=== PATIENT | female | born 1990 | race American Indian/Alaskan Native ===

== ENCOUNTER 2018-09-06 12:42 | Inpatient (IN) | payer MEDICAID ==
[2018-09-06 12:49] VITALS: BMI 40.6
[2018-09-06] MEDS ORDERED: Lactated Ringer's 1,000 ML IV ONE (12:58)
[2018-09-06] MEDS ORDERED: ceFAZolin IV 2 gm in Dextrose 2 GM/50 ML BAG IVPB SCH (13:15)
[2018-09-06] MEDS ORDERED: Oxytocin 30 UNIT 30 UNITS/500 ML BAG IV ONE (13:30)
[2018-09-06] MEDS ORDERED: OXYTOCIN/0.9 % NS 20 UNIT/1,000 ML BAG IV SCH (13:30)
[2018-09-06 13:53] LABS: BASO % 0.6 % (0.0-2.0); EOS % 0.5 % (0.0-4.0); LYMPH # 2.4 K/uL (1.0-4.3); MEAN CELL VOLUME 75.9 fl (81.0-99.0); MEAN CORPUSCULAR HEMOGLOBIN 24.3 pg (27.0-31.0); MEAN PLATELET VOLUME 8.8 fl (7.2-11.7); MONO # 0.7 K/uL (0.0-0.8); MONO % 10.1 % (0.0-10.0); NEUT # 3.9 K/uL (1.8-7.0); NEUT % 54.8 % (50.0-75.0); NRBC % 0.1 % (0.0-0.0); RBC 4.12 Mil/uL (3.80-5.20); RED CELL DISTRIBUTION WIDTH 17.2 % (11.5-14.5); WHITE BLOOD COUNT 7.1 K/uL (4.8-10.8)
[2018-09-06] MEDS ORDERED: ePHEDrine 50 mg/ml Inj ONE (14:07)
[2018-09-06] MEDS ORDERED: Morphine 1 mg/ml preservative-free Inj(Duramorph) ONE (14:07)
[2018-09-06] MEDS ORDERED: Phenylephrine 10 mg/ml Inj ONE (14:07)
[2018-09-06] MEDS ORDERED: Lactated Ringer's 1,000 ML IV SCH ×2 (14:45→21:15)
--- NOTE | 2018-09-06 14:54 | OBHP ---
Datetime: 09/06/2018 14:49 IP Adm Impression: , intrauterine IP Admit Plan: Initiate Section protocol Admit Comment, IP Provider: HPI: Karina is a 28 year old at 36.6 who presents with complaints o f low back pain and lower abdominal pain x1 day. She was at her [facility] ultrasound today and was advised by the validation technician to come to [facility] for evaluation. Shortly after triage when she went to get in bed verónica issa had a large gush of fluid down her legs and onto the floor. Since that time her pain has gotten muc h worse and she's reporting contractions every few minutes. Denies any complications with this . She does have a history of labor with her 3 previous pregnancies. History G1: 2009 at 36 weeks, emergency after labor due to compromise G2: 2014, repeat at 35 weeks d/t labor G3: 2016, repeat at 34 weeks due to labor and placenta previa G4: current PMH Denies PSH x3 Medications PNV Allergies NKDA Social Denies any alcohol, tobacco or drug use during Family History Not significant OBJECTIVE Vitals reviewed Ultrasounds - no placenta previa or accreta reported during the ASSESSMENT/PLAN: 28 year old at 36.6 presents with PROM. Gross rupture on exam. Her cervix is not dilated however she is in a lot of pain and reporting contractions every few minutes, also repor ting incisional pain. Plan is to proceed to as soon as possible given her history of 3 prev ious sections and the risk for scar dehiscence/rupture. Patient has been consented. - Also plan to type and cross given her history of a previa with her last - BTL consent obtained and signed as well OB Hospitalist Addendum: Pt seen and examined by me. Agree w/ above. 28 yo at 36+6 wks w / PPROM, grossly ruptured on exam and c/o back pain. Pt admitted to L_D for repeat cesrean section a nd bilateral tubal ligation. Consents obtained for procedure and possible transfusion. (ES) Extremities - PN: Normal Abdomen - PN: Normal Back - PN: Normal Lungs - PN: Normal Heart - PN: Normal Thyroid - PN: Not Done General - PN: Normal FHR - Baseline A Provider: 130's Amniotic Fluid Color, Provider: Clear Membranes, Provider: Ruptured Contraction Comments Provider: irreg Pool Provider: Positive EGA AdmitDate IP: 36.6 Vital Signs Provider: Reviewed IP Indication for Induction: Not Applicable IP Chief Complaint: Uterine contractions; Suspected ruptured membranes NICHD Variability Prov Fetus A: Moderate 6-25bpm NICHD Accel Fetus A IP Provider: [id number] FHR Category Provider Fetus A: Category I NICHD Decel Fetus A IP Provider: None Dilatation, Provider: 1 Effacement, Provider: 30 Station, Provider: -3 Genitourinary Exam: Normal Datetime: 09/06/2018 13:10 HEENT - PN: Normal Comments, ACOG Physical Exam: SSE: gross pooling of fluid on exam Gestation - Est Wks by US: 36.6
[2018-09-06] MEDS ORDERED: Dexamethasone 4 mg/1 ml ONE (16:39)
[2018-09-06] MEDS ORDERED: Midazolam 2 MG/2 ML VIAL ONE (16:41)
--- NOTE | 2018-09-06 17:18 | OBDS ---
DELIVERY PERSONNEL Delivery Doctor: Guanakito Fox MD Vice Chancellor: Lexi Tran RN Anesthesiologist: Hamilton Lopez MD Resident: Dr Mann(OB Fellow) MATERNAL INFORMATION Maternal Complications: None Provider Comments: Pre-op dx: 28 yo at 36+6 wks w/ PPROM and back pain, and incisional pain, multiparity, desires permanent sterilization Post-op dx: Same Procedure: Repeat low transverse section and scar excision Surgeon: Dominique Flow Worker: Dr. Yvrose Duncan, OB fellow Anesthesia: Spinal Anesthiologist: Dr. Lee Lopez Findings: Viable female infant delivered through clear fluid w/ nuchal cord x1, Apgars 9 and 9. Wt 2500 gms, 5#8. Anterior abdominal wall densely scarred. Nl appearing uterus and ovaries. Tubal li gation not done d/t b/l adnexal scarring. EBL: 800mL Complications: None LABOR SUMMARY EDC: 09/28/2018 00:00 No. Babies in Womb: 1 Attempted: No Labor Anesthesia: None LABOR INFORMATION Reason for Induction: Not Applicable Oxytocin: N/A Group B Beta Strep: unknown Antibiotics # of Doses: Ancef 2 grams IVPB Antibiotics Time of Last Dose: 3 Steroids Given: None Reason Steroids Not Administered: Not Applicable MEMBRANES Membranes Rupture Method: Spontaneous Rupture of Membranes: 09/06/2018 12:40 Length of Rupture (hrs): 3.60 Amniotic Fluid Color: Clear Amniotic Fluid Amount: Small Amniotic Fluid Odor: Normal STAGES OF LABOR Stage 3 hrs: 0 Stage 3 min: 1 CSECTION DELIVERY Primary Indication: Repeat C-S with BTL CSection Urgency: Elective CSection Incidence: Repeat Labor: Labor CSection Incision: Lower Uterine Transverse BABY A INFORMATION Infant Delivery Date/Time: 09/06/2018 16:16 Method of Delivery: Born in Route : No : N/A Forceps: N/A Vacuum Extraction: N/A Shoulder Dystocia : No SHOULDER DYSTOCIA BABY A Delivery Date/Time: 09/06/2018 16:16 PRESENTATION/POSITION BABY A Presentation: Cephalic Cephalic Presentation: Vertex Breech Presentation: N/A PLACENTA INFORMATION BABY A Placenta Delivery Time : 09/06/2018 16:17 Placenta Method of Delivery: Expressed Placenta Status: Delivered SCORES BABY A Heart Rate 1 min: >100 bpm Resp Effort 1 min: Good Cry Reflex Irritability 1 min: Cough or Sneeze or Pulls Away Muscle Tone 1 min: Active Motion Color 1 min: Body [place], Extremities Blue Resuscitation Effort 1 min: Tactile Stimulation SCORE 1 MIN: 9 Heart Rate 5 min: >100 bpm Resp Effort 5 min: Good Cry Reflex Irritability 5 min: Cough or Sneeze or Pulls Away Muscle Tone 5 min: Active Motion Color 5 min: Body [place], Extremities Blue Resuscitation Effort 5 min: N/A SCORE 5 MIN: 9 INFANT INFORMATION BABY A Gestational Age at Delivery: 36.6 Gestational Status: Term Infant Outcome : Liveborn Condition : Stable Infant Sex: Female IDENTIFICATION/MEDS BABY A ID Band Number: [id number] ID Band Location: Left Leg; Left Arm Vitamin K Given : Not Given Erythromycin Given: Not Given WEIGHT/LENGTH BABY A Infant Birthweight (gms): 2500 Infant Weight (lb): 5 Infant Weight (oz): 8 Length Inches: 20.00 Infant Length cms: 50.8 CORD INFORMATION BABY A No. Cord Vessels: 3 Nuchal Cord : Around Neck x1, Loose Nuchal Cord Other: n/a True Knot: n/a Infant Cord pH Baby Arterial: n/a Infant Cord pH Baby Venous: n/a Cord Blood Taken: Yes Banking/Donate Info: n/a Suction: Mouth
[2018-09-06] MEDS ORDERED: DiphenhydrAMINE 50 mg/ml Inj IVP PRN ×2 (17:20→21:08)
[2018-09-06 17:58] VITALS: RESP 20
[2018-09-06] MEDS ORDERED: Oxycodone/Acetaminophen 5/325 mg Tab PO PRN ×2 (19:51)
[2018-09-06] MEDS ORDERED: DiphenhydrAMINE 50 mg/ml Inj IVP STA (20:54)
--- NOTE | 2018-09-07 03:58 | OP ---
PROCEDURE DATE: 09/06/2018 PREOPERATIVE DIAGNOSIS: This is a 28-year-old G4, P 0-3-0-3 at 37 weeks and 6 days with premature rupture of the membranes and back pain as well as incisional pain, multiparity who desires permanent sterilization. POSTOPERATIVE DIAGNOSIS: This is a 28-year-old G4, P 0-3-0-3 at 37 weeks and 6 days with premature rupture of the membranes and back pain as well as incisional pain, multiparity who desires permanent sterilization. PROCEDURE: Repeat low transverse section and scar excision. SURGEON: Mario Fox MD ECOSYSTEM ECOLOGY PROFESSOR: Dr. Yvrose Duncan, OB fellow. TYPE OF ANESTHESIA: Spinal ANESTHESIOLOGIST: Dr. Lee Lopez. FINDINGS: Viable female infant, delivered through clear fluid with nuchal cord x1. Apgars were 9 and 9 at one and five minutes respectively. The weight was 2500 g or 5 pounds 8 ounces. Anterior abdominal wall was densely scarred. Normal appearing uterus. Tubal ligation was not done due to bilateral adnexal scarring. ESTIMATED BLOOD LOSS: 800 mL. COMPLICATIONS: None. DESCRIPTION OF PROCEDURE: The patient was taken to the operating room with IV running. She was placed under spinal anesthesia. She was then prepped and draped in a normal sterile fashion in the dorsal supine position with a leftward tilt. A Spencer had been placed in the bladder. A time-out was done. Initially, the prior scar was cut out with a knife. It was then held up with the Allis clamp as Cash scissors were used to free it from the subcutaneous tissue. The incision was then carried down to the underlying layer of fascia with the Bovie. The fascia was incised in the midline and the incision was extended laterally with the Bovie over Amaris. The inferior aspect of the fascial incision was then grasped with Krystal clamps, elevated, and the underlying rectus muscles were dissected off bluntly, and with the Bovie. Attention was then turned to the superior aspect of this incision, which in a similar fashion was grasped, tented up with the Krystal clamps, and the rectus muscles dissected off bluntly, and with the Bovie. There was noted to be dense scarring of the anterior abdominal wall. Two Allis clamps were placed at the center toward the superior aspect of the rectus muscles and this was lifted up and a scalpel was used to carefully enter the peritoneum. The peritoneal incision was then extended superiorly and inferiorly with good visualization of the bladder. The bladder blade was then inserted and vesicouterine peritoneum was identified, grasped with the pickups, and entered sharply with the Metzenbaum scissors. This incision was then extended laterally and the bladder flap was created digitally. The bladder blade was then reinserted and the lower uterine segment was incised in a transverse fashion with the scalpel. The uterine incision was then extended laterally with bandage scissors. The bladder blade was removed and the 's head delivered atraumatically. The cord was clamped and cut, and the was handed off to the awaiting director of annual giving. Cord blood was collected. The placenta was then delivered as the uterus was massaged. The uterus was then exteriorized and cleared of all clots and debris with the dry sponge curettage. The uterine incision was repaired with 0 Vicryl in a running locked fashion. The incision was noted to be off center, to the right side of the uterus, and so the incision was very near the right uterine artery which was carefully avoided during the repair. There was a second layer of 0 Vicryl placed in an imbricating fashion on the right half of the incision to reinforce the incision and for hemostasis. The tubes were then examined and it was decided to not do the tubal due to adnexal scarring bilaterally. The abdomen was then irrigated and the uterus was returned to the abdomen. The gutters were cleared of all clots. 0 chromic was then used in a running stitch to reapproximate the rectus muscle. The fascia was then reapproximated with 0 Vicryl in a running fashion. The subcutaneous fat was well irrigated. The Bovie was applied to bleeders. Interrupted stitches of 2-0 plain gut were placed to close the space of the subcutaneous fat. The skin was then closed with mac. The patient tolerated the procedure well. Sponge, lap, and needle counts were correct. Ancef 2 g had been given prior to the procedure. The patient was taken to the recovery room in stable condition. Mario Fox MD MTDD
[2018-09-07 06:43] LABS: HEMOGLOBIN 7.5 g/dL (12.0-16.0); MEAN CORPUSCULAR HEMOGLOBIN 24.2 pg (27.0-31.0); RBC 3.09 Mil/uL (3.80-5.20); RED CELL DISTRIBUTION WIDTH 16.9 % (11.5-14.5); WHITE BLOOD COUNT 9.6 K/uL (4.8-10.8)
[2018-09-07] MEDS: Multivitamin With Minerals Tab PO SCH (08:53)
[2018-09-07] MEDS ORDERED: Multivitamin With Minerals Tab PO SCH (09:00)
[2018-09-07] MEDS: Oxycodone/Acetaminophen 5/325 mg Tab PO PRN ×2 (10:57→21:49)
--- NOTE | 2018-09-07 11:49 | OBPPN ---
Datetime: 09/07/2018 11:44 PP Pain Prov: Within normal limits PP Nausea Prov: Denies PP Flatus Prov: No PP BM Prov: No PP Breasts Prov: Normal PP Heart Prov: Normal PP Lungs Prov: Normal PP Abdomen/Uterus Prov: Normal PP Lochia Prov: Normal PP Vulva/Perineum Prov: Normal PP CVA Tenderness Prov: Normal PP Extremities Prov: Normal PP C/S Incision Prov: Normal PP Impression Prov: Normal progression PP Plan Prov: Continue present management PP Progress Note Prov: She was able to sit up in chair and eat bfast. No issues. She feels some in cision pain. A: S/P C/S day 1 Anemia - asymptomatic PLAN: cont post op care Vital Signs Provider PP: Reviewed; Within Normal Limits
[2018-09-08] MEDS: Oxycodone/Acetaminophen 5/325 mg Tab PO PRN ×3 (02:42→21:26)
[2018-09-08 07:02] LABS: HEMOGLOBIN 7.8 g/dL (12.0-16.0); MEAN CELL VOLUME 75.8 fl (81.0-99.0); MEAN CORPUSCULAR HEMOGLOBIN 24.1 pg (27.0-31.0); MEAN CORPUSCULAR HGB CONC 31.8 g/dL (33.0-37.0); RBC 3.25 Mil/uL (3.80-5.20); WHITE BLOOD COUNT 8.1 K/uL (4.8-10.8)
--- NOTE | 2018-09-08 07:04 | OBPPN ---
Datetime: 09/08/2018 06:59 PP Pain Prov: Within normal limits PP Nausea Prov: Denies PP Flatus Prov: Yes PP BM Prov: Yes PP Abdomen/Uterus Prov: Normal PP Lochia Prov: Normal PP Extremities Prov: Normal PP C/S Incision Prov: Normal PP Progress Prov: Normal PP Comments Phys Exam Prov: Incison: intact w/ mac PP Impression Prov: Normal progression PP Plan Prov: Continue present management PP Progress Note Prov: POD 2 s/p Repeat c/s at 36+6 wks for PPROM, c/o feeling sore, requesting pain med, breast and bottle feeding Continue current management Vital Signs Provider PP: Reviewed
--- NOTE | 2018-09-08 07:34 | OBPPN ---
Datetime: 09/08/2018 07:16 PP Pain Prov: Within normal limits PP Nausea Prov: Denies PP Flatus Prov: Yes PP BM Prov: Yes PP Breasts Prov: Not Done PP Heart Prov: Normal PP Lungs Prov: Normal PP Abdomen/Uterus Prov: Normal PP Lochia Prov: Normal PP Vulva/Perineum Prov: Not Done PP CVA Tenderness Prov: Not Done PP Extremities Prov: Normal PP C/S Incision Prov: Normal PP Progress Prov: Normal PP Impression Prov: Normal progression PP Plan Prov: Continue present management PP Progress Note Prov: POD 2 S: 28 yo s/p on 09/06/2018. Pt. is seen and examined at bedside this AM. No overnight events. Pt reports mild abdominal pain, but well controlled with pain meds. D/c valencia, dressing dot jean, incision site healing well, no exudate seen, dry and intact. No nausea, advised to advance diet as tolerated. Breast feeding without difficulty and supplementing with formula. Lochia is similar to menses volume. Bowel movement reported overnight- soft and formed. Denies fever/chills, diarrhea, [place]/vomiting, chest pain, dyspnea, and dizziness. O: Vitally stable GEN: Patient is comfortable. In no acute distress. Cardio: S1S2, no murmurs, gallops or rubs. Lungs: clear air entry sounds b/l, no wheezing Abdomen: BS+, tenderness to palpation. Incision scar noted, well healing with no exudate seen, dry and intact. Uterus is firm and at the level of the umbilicus. EXT: No edema, calves non-tender to palpation Assessment/Plan: 28 yo s/p on 09/06/2018. Pt remains afebrile, tolerating pain with m edication, doing well on POD#1. OOB with caution 1. SCDs for DVT prophylaxis, encouraged ambulating 2. Percocet 5/325mg, and Motrin 600mg prn for pain. 3. Senokot for constipation 4. Continue to encourage and ambulating 5. f/u CBC post op: 7.5/24.1 6. Patient reports she is going to have IUD placement by provider. 7. Anticipated d/c to home, 09/09/2017. --- Rosemary Wu MD PGY-1 Pt seen and examined by me. Agree w/ above. POD 2 s/p Repeat c/s for PPROM at 36+ 6 wks, doing w ell, breast and bottle feeding. Continue current managment. (ES) IP PP Procedures: None Vital Signs Provider PP: Reviewed; Within Normal Limits
[2018-09-08] MEDS: Multivitamin With Minerals Tab PO SCH (09:19)
[2018-09-09] MEDS: Oxycodone/Acetaminophen 5/325 mg Tab PO PRN ×2 (04:00→08:27)
[2018-09-09] MEDS: Multivitamin With Minerals Tab PO SCH (08:27)
[2018-09-09] MEDS ORDERED: Measles, Mumps, and Rubella 0.5 ML VIAL SC ONE (09:00)
[2018-09-09] MEDS ORDERED: Tdap Vaccine 0.5 ml Vial (10-64 yrs) IM ONE (09:00)
--- NOTE | 2018-09-09 11:54 | OBPPN ---
Datetime: 09/09/2018 08:01 PP Pain Prov: Within normal limits PP Nausea Prov: Denies PP Flatus Prov: Yes PP BM Prov: Yes PP Breasts Prov: Not Done PP Heart Prov: Normal PP Lungs Prov: Normal PP Abdomen/Uterus Prov: Normal PP Lochia Prov: Normal PP Vulva/Perineum Prov: Normal PP CVA Tenderness Prov: Normal PP Extremities Prov: Normal PP C/S Incision Prov: Normal PP Progress Prov: Normal PP Impression Prov: Normal progression PP Plan Prov: Continue present management PP Progress Note Prov: POD 3 S: 28 yo s/p on 09/06/2018. Pt. is seen and examined at bedside this AM. No overnight events. Pt reports mild abdominal pain, well controlled with pain meds. D/c valencia, dressing removed, incision site healing well, no exudate seen, dry and intact. No nausea, advised to advance diet as t olerated. Breast feeding without difficulty and supplementing with formula. Lochia is similar to mens es volume. Bowel movement reported overnight- soft and formed. Denies fever/chills, diarrhea, nausea/ vomiting, chest pain, dyspnea, and dizziness. O: Vitally stable GEN: Patient is comfortable. In no acute distress. Cardio: S1S2, no murmurs, gallops or rubs. Lungs: clear air entry sounds b/l, no wheezing Abdomen: BS+, tenderness to palpation. Incision scar noted, well healing with no exudate seen, dry and intact. Uterus is firm and at the level of the umbilicus. EXT: No edema, calves non-tender to palpation Assessment/Plan: 28 yo s/p Repeat for PROM at 36+6 weeks on 09/06/2018. Pt remains af ebrile, tolerating pain with medication, doing well on POD#3. OOB with caution 1. SCDs for DVT prophylaxis, encouraged ambulating 2. Percocet 5/325mg, and Motrin 600mg prn for pain. 3. Senokot for constipation 4. Continue to encourage and ambulating 5. f/u CBC post op: 7.5/24.1, Repeat 7.8 6. Patient reports she is going to have IUD placement by provider. 7. Anticipated d/c to home today, 09/09/2017. Appt at [facility] on 09/13/18 --- Cesario Javed MD PGY-[address] Alcala: I have evaluated the patient independently and I agree with the above Vital Signs Provider PP: Reviewed; Within Normal Limits
--- NOTE | 2018-09-09 11:54 | OBDCSUM ---
Datetime: 09/09/2018 08:03 Discharged to, Provider: Home Follow up at, Provider: [facility] clinic Disch Instr Activity: Normal activity; May Shower Disch Instr Diet: Regular Discharge Instructions, Provider: Routine instructions given Discharge Diagnosis, Provider: Term Delivered Discharge Time: 09/09/2018 13:00 Follow up in weeks, Provider: 09/13/18 and 4-6 weeks Disch Referrals: None Contraception discussed, Prov: Yes Disch Activity Restrictions: No exercising; No lifting; No sexual activity; Nothing in vagina - Inte rcourse, tampons, douche Discharge Comment, Provider: Karina Velazquez Dicharge Summary DOA: 09/06/2018 EGA: 35.5 Diagnosis: Repeat due to PROM delivery secondary to PROM Summary of : 28 yo s/p Repeat for PROM at 36+6 weekson 09/06/2018. L_D summary: Patient tolerated surgery well. Pain was well controlled with pain meds. D/c valencia, d ressing removed, incision site healing well, no exudate seen, dry and intact. No nausea, advised to a dvance diet as tolerated. Breast feeding without difficulty and supplementing with formula. Lochia is similar to menses volume. Reports she has been having regular bowel movements. DOL: 09/06/2018 at 16:16 repeat . NB: Female : 9/9 Weight: 2500 g No serious complications during PP/Post-Op. Lochia= menses, mild pain, controlled with medications Rubella Equivocal, MMR and Tdap vaccine given. Blood type: O+ CBC pp: 7.5/24.1 Discharge Date: 09/09/2017 Time 10:00 AM Discharge Instructions: -encourage -percocet/Ibuprofen for pain PRN -Colace 100mg BID prn constipation -Ambulate as tolerated -f/u NB visit 3-7 days w/ compressor operator and PP visit 6 weeks with OB; Wound care 4-7 days - patient will make appointment with [facility]. --- Cesario Javed MD PGY-1 Contraception after Delivery: IUD
[2018-09-09 19:28] VITALS: BP 128/83; PULSE 103; TEMP 98.5; O2SAT 100
== END 2018-09-09 13:00 | disposition home or self-care (01) | DRG 370 ==
LOC: H.EROB2 12:42 → H.ERHOLD 13:06 → H.EROB 14:33 → H.OB/GYN 20:35
PROVIDERS: ADMIT Obstetrics & Gynecology; ATTEND Obstetrics & Gynecology
PROC: 10D00Z1 Extraction of Products of Conception, Low, Open Approach (ICD-10-PCS; principal; 2018-09-06)
PROC: 0UB70ZZ Excision of Bilateral Fallopian Tubes, Open Approach (ICD-10-PCS; 2018-09-06)
PROC: 4A1HXCZ Monitoring of Products of Conception, Cardiac Rate, External Approach (ICD-10-PCS; 2018-09-06)
DX: O34.211 Maternal care for low transverse scar from previous cesarean delivery (principal); O44.03 Complete placenta previa NOS or without hemorrhage, third trimester; N85.8 Other specified noninflammatory disorders of uterus; O60.14X0 Preterm labor third trimester with preterm delivery third trimester, not applicable or unspecified; O69.81X0 Labor and delivery complicated by cord around neck, without compression, not applicable or unspecified; Z37.0 Single live birth; Z3A.36 36 weeks gestation of pregnancy; Z30.2 Encounter for sterilization